=== PATIENT | female | born 1970 | race Caucasian/White ===

== ENCOUNTER → 2017-06-28 | Outpatient (CLI) | payer BC ==
[~2017-06-28] MED LIST: KRIL1000 PO; MAGNESIUM PO; MULT-704 PO; TRACE MINERALS PO; TURM1CAP PO
== END | disposition home or self-care (01) ==
LOC: C.PATHSPEC 15:18 → C.PAPS 16:53
PROVIDERS: ATTEND Obstetrics & Gynecology
DX: Z01.419 Encounter for gynecological examination (general) (routine) without abnormal findings (principal)

== ENCOUNTER → 2017-07-12 | Outpatient (CLI) | payer BC ==
[2017-07-12 17:43] LABS: BASO % 0.3 %; BASO ABS # 0.02 K/uL (0-0.2); COMPLETE YES; EOS % 0.6 %; HEMATOCRIT 35.1 % (37-47); IG% 0.2 %; LYMPH % 43.4 %; LYMPH ABS # 2.77 K/uL (1.2-3.4); MEAN CELL VOLUME 88.9 fL (80-100); MEAN CORPUSCULAR HEMOGLOBIN 29.4 pg (25-34); MEAN PLATELET VOLUME 10.3 fL (7.4-10.4); MONO % 5.6 %; NEUT % 49.9 %; PLATELET COUNT 293 K/uL (130-400); RED BLOOD COUNT 3.95 M/uL (4.2-5.4); WHITE BLOOD COUNT 6.38 K/uL (4.8-10.8)
[2017-07-12 18:09] LABS: PREG INTERNAL NEGATIVE QC NEG CLEAR BACKGROUND; PREG INTERNAL POSITIVE QC POS CONTROL LINE
== END | disposition home or self-care (01) ==
LOC: C.LAB 16:41
PROVIDERS: ATTEND Obstetrics & Gynecology
DX: Z01.812 Encounter for preprocedural laboratory examination (principal); N92.0 Excessive and frequent menstruation with regular cycle; N92.5 Other specified irregular menstruation

== ENCOUNTER → 2017-07-15 | Day surgery (SDC) | payer BC ==
--- NOTE | 2017-07-06 10:31 | HISTORY & PHYSICAL EXAMINATION ---
DATE OF ADMISSION: 07/15/2017 CHIEF COMPLAINT: Heavy vaginal bleeding with clotting. HISTORY OF PRESENT ILLNESS: The patient is a 46-year-old 4, para 3, had 1 spontaneous AB. Her general health is good. Her had a vasectomy for control. 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 She describes her periods as every 28-30 days, they start and stop, they last for over 6 days. 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 She had a transvaginal ultrasound on 06/29/2017 which showed a thickened endometrium at 1 cm. She is presently being scheduled for an outpatient D&C hysteroscopy. PAST MEDICAL HISTORY: She has 2 girls and 1 boy. No history of rheumatic fever, heart disease, heart murmur, diabetes, tuberculosis. ALLERGIES: She has no drug allergies. PAST SURGICAL HISTORY: She had a D&C in 1998 for a molar . SOCIAL HISTORY: No smoking. No excessive alcohol intake. 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 FAMILY HISTORY: There is some family history of congenital heart disease. Mom is 67, in good health. Father at age 72, a year after an artificial valve for staphylococcal infection of the valve. She has 1 sister in good health. REVIEW OF SYSTEMS: HEAD: No symptoms of frequent or severe headaches. EYES: No symptoms of blurred vision, double vision. EARS: No symptoms of frequent ear infections, difficulty hearing. NOSE: No symptoms of frequent nosebleeds. PHYSICAL EXAMINATION: GENERAL: Well-developed, well-nourished 46-year-old white female, alert, oriented x3 and cooperative, in no acute distress, appears her stated age. EYES: Conjunctivae are pink. Sclerae white. No evidence of jaundice. EARS: Normal light reflex bilaterally. NOSE: Normal mucosa. Septum is midline. There are no polyps. THROAT: No erythema or evidence of infection. Teeth are in good state of repair. HEAD: Normocephalic, normal distribution of hair. NECK: Supple. Trachea midline. Thyroid is not enlarged. There is no adenopathy appreciated. Both carotids are of good intensity. CHEST: Clear to auscultation and percussion. No wheezes, rales or rhonchi appreciated. HEART: Regular rhythm. S1 and S2 are normal. BREASTS: Normal. ABDOMEN: Soft and nontender. PELVIC: Normal-appearing cervix. Uterus is top normal size. There are no adnexal masses appreciated. MUSCULOSKELETAL: No calf tenderness. IMPRESSIONS OF THIS CASE: Hypermenorrhea, suspected adenomyosis, history of molar .
[2017-07-07 08:07] VITALS: Ht 168.9 cm; Wt 67.3 kg
[~2017-07-15] VITALS: Ht 168.9 cm; Wt 67.3 kg
[~2017-07-15] MED LIST changes: +ATROPINE SULFATE 0.1 MG/ML 5ML SYR IV PRN; +DEXAMETHASONE SOD INJ 4 MG/ML VIAL ONE; +FENTANYL CITRATE INJ 50 MCG/1 ML 2 ML VIAL IV PRN; +FENTANYL CITRATE INJ 50 MCG/1 ML 2 ML VIAL ONE; +HYDROCODONE/ACETAMOPHEN 5/325MG TAB PO PRN; +IBUPROFEN 600 MG TAB PO PRN; +KETOROLAC TROMETHAMINE 30 MG/ML VIAL IV. PRN; +KETOROLAC TROMETHAMINE 30 MG/ML VIAL ONE; +LIDOCAINE HCL 2% 2 ML VIAL (20MG/ML) ONE; +MIDAZOLAM HCL 1 MG/ML 2ML VIAL ONE; +ONDANSETRON INJ 2 MG/ML 2 ML VIAL IV PRN; +ONDANSETRON INJ 2 MG/ML 2 ML VIAL ONE; +OXYCODONE/ACETAMINOPHEN 5-325 TAB PO PRN; +PROPOFOL IV EMULSION 10 MG/ML 20 ML VIAL IV ONE; +SODIUM CHLORIDE 0.9% 1000ML 1,000 ML IV SCH
--- NOTE | 2017-07-15 06:41 | History & Physical Bridge Note ---
H&P Re-Evaluation Bridge Note: I have examined the patient, reviewed the History & Physical and in the interval since the performance of the History & Physical I have noted the following changes of clinical significance: No changes noted
[2017-07-15] MEDS: LACTATED RINGER'S 1000ML 1,000 ML IV SCH ×2 (06:56→07:47)
--- NOTE | 2017-07-15 07:28 | [facility] Post Operative Brief Note ---
Immediate Operative Summary Operative Date Jul 15, 2017. Pre-Operative Diagnosis Heavy vaginal bleeding, hypermenorrhea Post-Operative Diagnosis same as preop Procedure(s) Performed Dilatation And Curettage, Hysteroscopy Surgeon Dr. Garcia Gis Engineer Surgeon(s) none Estimated Blood Loss 10ml Findings UTERUS SOUNDED TO 8 CM Specimens A: Endometrial Currettings Complication(s) None Disposition Recovery Room / PACU
--- NOTE | 2017-07-15 07:31 | Discharge Instructions-SurgCtr ---
Discharge Instructions Date of Service Jul 15, 2017. Visit Reason for Visit: Heavy Vaginal Bleeding, Dub Discharge Discharge Diagnosis / Problem: HYPERMENORRHEA Discharge Goals Goal(s): Improve function, Learn about illness Activity Recommendations Activity Limitations: as noted below ACTIVITY RECOMMENDATIONS: * Avoid tampons, douching, hot tubs, pools, and intercourse until bleeding has stopped. * May shower as usual. * No strenuous activity for 24-48 hours. After 24-48 hours, you may do anything you feel like doing (driving and sports are okay). SPECIAL CARE INSTRUCTIONS: Special Diet: * Mild nausea may occur in the immediate post-operative period. * Take clear liquids such as tea, cola or bouillon until all nausea has subsided; you may then resume your normal diet. Special Care: * Light bleeding and vaginal spotting can last from a few days to 3-4 weeks. Call your doctor if bleeding becomes heavier than the heaviest part of your period. * Check your temperature twice a day for one week. If it goes above 100.4 degrees Fahrenheit (38.0 Celsius), notify your doctor. * Call your doctor's office for an appointment for 6 weeks after your surgery. FOLLOW-UP VISIT: Call your doctor's office for an appointment for 6 weeks after your surgery. Anesthesia . Post Anesthesia Instructions: If you have had General Anesthesia or IV Sedation: * Do not drive today. * Resume driving when surgeon permits. * Do not make important decisions or sign legal documents today. * Call surgeon for: 1. Temperature elevations greater than 101 degrees F. 2. Uncontrollable pain. 3. Excessive bleeding. 4. Persistent nausea and vomiting. 5. Medication intolerance (nausea, vomiting or rash). * For nausea and vomiting use only clear liquids such as: tea, soda, bouillon until nausea subsides, then gradually increase diet as tolerated. * If you have any concerns or questions, call your surgeon's office. If physician is unavailable and it is an emergency, call 911 or go to the nearest emergency room. . Instructions / Follow-Up Instructions / Follow-Up ACTIVITY RECOMMENDATIONS: * Avoid tampons, douching, hot tubs, pools, and intercourse until bleeding has stopped. * May shower as usual. * No strenuous activity for 24-48 hours. After 24-48 hours, you may do anything you feel like doing (driving and sports are okay). SPECIAL CARE INSTRUCTIONS: Special Diet: * Mild nausea may occur in the immediate post-operative period. * Take clear liquids such as tea, cola or bouillon until all nausea has subsided; you may then resume your normal diet. Special Care: * Light bleeding and vaginal spotting can last from a few days to 3-4 weeks. Call your doctor if bleeding becomes heavier than the heaviest part of your period. * Check your temperature twice a day for one week. If it goes above 100.4 degrees Fahrenheit (38.0 Celsius), notify your doctor. * Call your doctor's office for an appointment for 6 weeks after your surgery. FOLLOW-UP VISIT: Call your doctor's office for an appointment for 6 weeks after your surgery. Diet Recommendations Home Diet: resume previous diet Procedures Procedures Performed: Dilatation And Curettage, Hysteroscopy Pending Studies Studies pending at discharge: no Medical Emergencies . Who to Call and When: Medical Emergencies: If at any time you feel your situation is an emergency, please call 911 immediately. . Non-Emergent Contact Non-Emergency issues call your: Master Control Supervisor Call Non-Emergent contact if: temperature is above 100.5 . . "Provider Documentation" section prepared by Jaxson Garcia. .
--- NOTE | 2017-07-15 07:49 | OPERATIVE REPORT ---
DATE OF OPERATION: 07/15/2017 INDICATIONS FOR SURGERY: Heavy prolonged vaginal bleeding with clotting. PREOPERATIVE DIAGNOSIS: Hypermenorrhea. POSTOPERATIVE DIAGNOSIS: Same. Uterus sounded to 8 cm. PROCEDURE: D&C, hysteroscopy. SURGEON: Dr. Garcia. ESTIMATED BLOOD LOSS: 10 mL. ANESTHESIA: General. OPERATIVE FINDINGS AND PROCEDURE: The patient was brought to the OR table, correctly identified by armband and conversation. General anesthesia was administered. Perineum and vagina were painted with Betadine paint, draped in usual sterile fashion. Catheter was used to empty the bladder. Careful pelvic exam under anesthesia revealed a mid positional size uterus. There were no adnexal masses appreciated. Weighted speculum was placed in the posterior vagina. Anterior lip of the cervix grasped with single tooth tenaculum. Uterus was sounded to 8 cm. Cervix was dilated with graduated dilators. Hysteroscope with normal saline distention medium was inserted into the uterine cavity. Photographs were taken from the cervix to the fundus of the uterus and photographs were taken of both tubal ostia, there were no polyps. Following this, a thorough and extensive curettage of the endometrial cavity was performed. All 4 quadrants of the uterus were thoroughly and systematically cureted. This was productive of a moderate amount of grossly normal tissue. After thorough curettage of the entire endometrial cavity instruments were removed. The patient tolerated the procedure well and left the OR in good condition. I attest to the content of the Intraoperative Record and any orders documented therein. Any exception s are noted below.
[2017-07-15 08:22] VITALS: TEMP 36.8
[2017-07-15 08:33] VITALS: BP 99/60; PULSE 59; O2SAT 100
--- NOTE | 2017-07-15 08:37 | Anesthesia Progress Nt - [facility] ---
Anesthesia Post Op Note Date & Time Jul 15, 2017 at 08:37 Vital Signs Pain Intensity: 0 Vital Signs Past 12 Hours Date Time Temp Pulse Resp B/P (MAP) Pulse Ox O2 Delivery O2 Flow Rate FiO2 07/15/17 08:33 59 14 99/60 (73) 100 Room Air 07/15/17 08:22 36.8 67 16 103/69 (80) 100 Room Air 07/15/17 08:06 107/65 07/15/17 08:03 36.7 67 16 95/58 99 Room Air 07/15/17 08:02 65 12 98 07/15/17 08:02 64 12 07/15/17 08:01 95/58 07/15/17 07:58 61 14 07/15/17 07:58 60 14 98 07/15/17 07:56 99/62 07/15/17 07:53 67 16 97 07/15/17 07:53 67 16 07/15/17 07:52 66 12 98 07/15/17 07:52 65 12 07/15/17 07:51 103/59 07/15/17 07:47 63 15 07/15/17 07:47 63 15 99 07/15/17 07:46 98/53 07/15/17 07:42 75 17 98 07/15/17 07:42 75 17 07/15/17 07:41 100/54 07/15/17 07:39 67 15 07/15/17 07:39 67 15 98 07/15/17 07:36 93/53 07/15/17 07:34 68 14 07/15/17 07:34 68 14 98 07/15/17 07:31 92/54 07/15/17 07:30 89/63 07/15/17 07:29 36.7 66 12 89/63 97 Diffusion Mask 6 07/15/17 06:32 36.6 69 16 109/70 (83) 100 Room Air Notes Mental Status: alert / awake / arousable, participated in evaluation Pt Amnestic to Procedure: Yes Nausea / Vomiting: adequately controlled Pain: adequately controlled Airway Patency, RR, SpO2: stable & adequate BP & HR: stable & adequate Hydration State: stable & adequate Anesthetic Complications: no major complications apparent
== END | disposition home or self-care (01) ==
LOC: X.SURG 06:09
PROVIDERS: ATTEND Obstetrics & Gynecology
DX: N92.0 Excessive and frequent menstruation with regular cycle (principal); Z82.49 Family history of ischemic heart disease and other diseases of the circulatory system

== ENCOUNTER → 2017-12-13 | Outpatient (CLI) | payer BC ==
[~2017-12-13] MED LIST changes: -ATROPINE SULFATE 0.1 MG/ML 5ML SYR IV PRN; -DEXAMETHASONE SOD INJ 4 MG/ML VIAL ONE; -FENTANYL CITRATE INJ 50 MCG/1 ML 2 ML VIAL IV PRN; -FENTANYL CITRATE INJ 50 MCG/1 ML 2 ML VIAL ONE; -HYDROCODONE/ACETAMOPHEN 5/325MG TAB PO PRN; -IBUPROFEN 600 MG TAB PO PRN; -KETOROLAC TROMETHAMINE 30 MG/ML VIAL IV. PRN; -KETOROLAC TROMETHAMINE 30 MG/ML VIAL ONE; -LIDOCAINE HCL 2% 2 ML VIAL (20MG/ML) ONE; -MIDAZOLAM HCL 1 MG/ML 2ML VIAL ONE; -MULT-704 PO; +MULTTAB58 PO; -ONDANSETRON INJ 2 MG/ML 2 ML VIAL IV PRN; -ONDANSETRON INJ 2 MG/ML 2 ML VIAL ONE; -OXYCODONE/ACETAMINOPHEN 5-325 TAB PO PRN; -PROPOFOL IV EMULSION 10 MG/ML 20 ML VIAL IV ONE; -SODIUM CHLORIDE 0.9% 1000ML 1,000 ML IV SCH; -TRACE MINERALS PO
[2017-12-13 15:38] LABS: BASO % 0.3 %; BASO ABS # 0.02 K/uL (0-0.2); EOS % 0.5 %; EOS ABS # 0.04 K/uL (0-0.5); HEMOGLOBIN 11.4 g/dL (12.0-16.0); IG# 0.02 K/uL (0.00-0.02); LYMPH % 36.6 %; LYMPH ABS # 2.79 K/uL (1.2-3.4); MEAN CELL VOLUME 88.1 fL (80-100); MEAN CORPUSCULAR HEMOGLOBIN 29.5 pg (25-34); MEAN CORPUSCULAR HGB CONC 33.5 g/dl (32-36); MEAN PLATELET VOLUME 9.7 fL (7.4-10.4); MONO ABS # 0.53 K/uL (0.11-0.59); NEUT % 55.3 %; NEUT ABS # 4.22 K/uL (1.4-6.5); PLATELET COUNT 267 K/uL (130-400); RED CELL DISTRIBUTION WIDTH CV 12.8 % (11.5-14.5); RED CELL DISTRIBUTION WIDTH SD 41.1 fL (36.4-46.3); WHITE BLOOD COUNT 7.62 K/uL (4.8-10.8)
== END | disposition home or self-care (01) ==
LOC: C.LAB 15:00
PROVIDERS: ATTEND Obstetrics & Gynecology
DX: Z01.812 Encounter for preprocedural laboratory examination (principal); N92.0 Excessive and frequent menstruation with regular cycle

== ENCOUNTER → 2017-12-16 | Day surgery (SDC) | payer BC ==
[2017-12-01 10:11] VITALS: Ht 168.9 cm; Wt 67.3 kg
--- NOTE | 2017-12-13 14:36 | HISTORY & PHYSICAL EXAMINATION ---
DATE OF ADMISSION: 12/16/2017 CHIEF COMPLAINT: Heavy vaginal bleeding with clotting, failed D&C, failed medical therapy. HISTORY OF PRESENT ILLNESS: The patient is a 47-year-old 4, para 3, has had one spontaneous AB. General health is good. had a vasectomy for control. She has been experiencing episodes of heavy vaginal bleeding and clotting, soaking through a pad and a tampon in under an hour. 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 It has also been getting progressively worse. She describes her periods as every 28-30 days that last for over 6 days, 2 extremely heavy days of bleeding where she will soak through a pad and a tampon, both in under an hour. 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 She had a transvaginal ultrasound on 06/29/2017, which showed a thickened endometrium. She then had a D&C hysteroscopy on 07/06/2017. Following this procedure, her symptoms recurred. We tried treating her with medical therapy; however, she was unable to tolerate hormonal therapy. She is presently being scheduled for an outpatient D&C, hysteroscopy, and endometrial ablation. PAST MEDICAL HISTORY: She has 2 girls and 1 boy. No history of rheumatic fever, heart disease, heart murmur, diabetes, or tuberculosis. ALLERGIES: She has no known drug allergies. PAST SURGICAL HISTORY: She has had a D&C in 1998 for a molar and she had a D&C hysteroscopy on 07/06/2017. SOCIAL HISTORY: No smoking. No excessive alcohol. 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 FAMILY HISTORY: Family history of congenital heart disease. Mom is 67 in good health. Father at age 72, a year after an artificial valve got infected with staph. She has 1 sister in good health. REVIEW OF SYSTEMS: No symptoms of frequent or severe headaches. No symptoms of blurred vision, double vision. No symptoms of ear infections or difficulty hearing. No symptoms of frequent nosebleeds. PHYSICAL EXAMINATION: GENERAL: A well-developed, well-nourished 46-year-old white female, alert, oriented x3 and cooperative in no acute distress, appears her stated age. EYES: Conjunctivae are pink. Sclerae are white. No evidence of jaundice. EARS: Had normal light reflex bilaterally. NOSE: Had normal mucosa. Septum is midline. There were no polyps. THROAT: No erythema or evidence of infection. Teeth are in good state of repair. HEAD: Normocephalic, normal distribution of hair. NECK: Supple. Trachea is midline. Thyroid is not enlarged. There is no adenopathy appreciated. Both carotids are of good intensity. CHEST: Clear to auscultation and percussion. No wheezes, rales or rhonchi appreciated. HEART: Had regular rhythm. S1 and S2 are normal. BREASTS: Normal. ABDOMEN: Soft and nontender. PELVIC: Revealed normal-appearing cervix. Uterus top normal size. There are no adnexal masses appreciated. MUSCULOSKELETAL: Revealed no calf tenderness. IMPRESSIONS OF THIS CASE: History of molar , hypermenorrhea, suspected adenomyosis, failed medical therapy, failed outpatient D&C therapy.
[~2017-12-16] VITALS: Ht 168.9 cm; Wt 67.3 kg
[~2017-12-16] MED LIST changes: +ATROPINE SULFATE 0.1 MG/ML 5ML SYR IV PRN; +DEXAMETHASONE SOD INJ 4 MG/ML VIAL ONE; +FENTANYL CITRATE INJ 50 MCG/1 ML 2 ML VIAL IV PRN; +FENTANYL CITRATE INJ 50 MCG/1 ML 2 ML VIAL ONE; +HYDROCODONE/ACETAMIN 5/325MG TAB ONE; +HYDROCODONE/ACETAMIN 5/325MG TAB PO PRN; +IBUPROFEN 600 MG TAB PO PRN; +KETOROLAC TROMETHAMINE 30 MG/ML VIAL IV. PRN; +KETOROLAC TROMETHAMINE 30 MG/ML VIAL ONE; +LACTATED RINGER'S 1000ML 1,000 ML IV SCH; +LIDOCAINE HCL 2% 2 ML VIAL (20MG/ML) ONE; +MIDAZOLAM HCL 1 MG/ML 2ML VIAL ONE; +ONDANSETRON INJ 2 MG/ML 2 ML VIAL IV PRN; +ONDANSETRON INJ 2 MG/ML 2 ML VIAL ONE; +OXYCODONE/ACETAMINOPHEN 5-325 TAB PO PRN; +PROPOFOL IV EMULSION 10 MG/ML 20 ML VIAL IV ONE; +SODIUM CHLORIDE 0.9% 1000ML 1,000 ML IV SCH
--- NOTE | 2017-12-16 09:00 | [facility] Post Operative Brief Note ---
Immediate Operative Summary Operative Date Dec 16, 2017. Pre-Operative Diagnosis Heavy Vaginal Bleeding Post-Operative Diagnosis same Procedure(s) Performed Dilatation And Curettage, Hysteroscopy With Endometrial Ablation with Novasure Surgeon Dr. Felipe Garcia Performance Improvement Specialist Surgeon(s) 0 Estimated Blood Loss 10ml Findings Consistent with Post-Op Diagnosis Specimens A. Endometrial Curettings Drains None Anesthesia Type General Complication(s) none Disposition Disposition: Recovery Room / PACU
--- NOTE | 2017-12-16 09:10 | Discharge Instructions-SurgCtr ---
Discharge Instructions Date of Service Dec 16, 2017. Visit Reason for Visit: Heavy Vaginal Bleeding Discharge Discharge Diagnosis / Problem: HEAVY VAGINAL BLEEDING Discharge Goals Goal(s): Improve function, Therapeutic intervention Activity Recommendations Activity Limitations: as noted below ACTIVITY RECOMMENDATIONS: * Avoid tampons, douching, hot tubs, pools, and intercourse until bleeding has stopped. * May shower as usual. * No strenuous activity for 24-48 hours. After 24-48 hours, you may do anything you feel like doing (driving and sports are okay). SPECIAL CARE INSTRUCTIONS: Special Diet: * Mild nausea may occur in the immediate post-operative period. * Take clear liquids such as tea, cola or bouillon until all nausea has subsided; you may then resume your normal diet. Special Care: * Light bleeding and vaginal spotting can last from a few days to 3-4 weeks. Call your doctor if bleeding becomes heavier than the heaviest part of your period. * Check your temperature twice a day for one week. If it goes above 100.4 degrees Fahrenheit (38.0 Celsius), notify your doctor. * Call your doctor's office for an appointment for 6 weeks after your surgery. FOLLOW-UP VISIT: Call your doctor's office for an appointment for 6 weeks after your surgery. Anesthesia . Post Anesthesia Instructions: If you have had General Anesthesia or IV Sedation: * Do not drive today. * Resume driving when surgeon permits. * Do not make important decisions or sign legal documents today. * Call surgeon for: 1. Temperature elevations greater than 101 degrees F. 2. Uncontrollable pain. 3. Excessive bleeding. 4. Persistent nausea and vomiting. 5. Medication intolerance (nausea, vomiting or rash). * For nausea and vomiting use only clear liquids such as: tea, soda, bouillon until nausea subsides, then gradually increase diet as tolerated. * If you have any concerns or questions, call your surgeon's office. If physician is unavailable and it is an emergency, call 911 or go to the nearest emergency room. . Instructions / Follow-Up Instructions / Follow-Up ACTIVITY RECOMMENDATIONS: * Avoid tampons, douching, hot tubs, pools, and intercourse until bleeding has stopped. * May shower as usual. * No strenuous activity for 24-48 hours. After 24-48 hours, you may do anything you feel like doing (driving and sports are okay). SPECIAL CARE INSTRUCTIONS: Special Diet: * Mild nausea may occur in the immediate post-operative period. * Take clear liquids such as tea, cola or bouillon until all nausea has subsided; you may then resume your normal diet. Special Care: * Light bleeding and vaginal spotting can last from a few days to 3-4 weeks. Call your doctor if bleeding becomes heavier than the heaviest part of your period. * Check your temperature twice a day for one week. If it goes above 100.4 degrees Fahrenheit (38.0 Celsius), notify your doctor. * Call your doctor's office for an appointment for 6 weeks after your surgery. FOLLOW-UP VISIT: Call your doctor's office for an appointment for 6 weeks after your surgery. Diet Recommendations Home Diet: resume previous diet Procedures Procedures Performed: Dilatation And Curettage, Hysteroscopy With Endometrial Ablation with Novasure Pending Studies Studies pending at discharge: no Medical Emergencies . Who to Call and When: Medical Emergencies: If at any time you feel your situation is an emergency, please call 911 immediately. . Non-Emergent Contact Non-Emergency issues call your: Mechanical Maintenance Technician Call Non-Emergent contact if: temperature is above 100.5 . . "Provider Documentation" section prepared by Jaxson Garcia. .
--- NOTE | 2017-12-16 09:21 | OPERATIVE REPORT ---
DATE OF OPERATION: 12/16/2017 PROCEDURE: D&C, hysteroscopy, endometrial ablation. INDICATIONS FOR SURGERY: Prior failed D&C, heavy vaginal bleeding with flooding. PREOPERATIVE DIAGNOSIS: Hypermenorrhea. POSTOPERATIVE DIAGNOSIS: Same. Pathology pending. SURGEON: Dr. Garcia. ESTIMATED BLOOD LOSS: 10 mL ANESTHESIA: General. OPERATIVE FINDINGS AND PROCEDURE: The patient was brought to the OR table, correctly identified by armband and conversation. Perineum and vagina were painted with Betadine paint, draped in usual sterile fashion. Careful pelvic exam under anesthesia revealed a normal size anteverted uterus. There were no adnexal masses appreciated. Catheter was used to empty the bladder. A weighted speculum was placed in the posterior vagina. Anterior lip was grasped with single tooth tenaculum. The uterus was sounded to 8.5 cm. Cervix was then dilated with graduated dilators. A hysteroscope was placed in the uterine cavity. The entire cavity was visualized including both tubal ostia. Photographs were taken of the ostia and the cavity. There were no polyps. After this, the hysteroscope was removed. A small sharp serrated curet was placed in the uterine cavity. All 4 quadrants were thoroughly and systematically cureted. This was productive of moderate amount of grossly normal-appearing tissue. Following this, a NovaSure endometrial ablation device was placed in the uterine cavity. The cervix was measured at 4.5 cm. The device was opened to a width of 4.6. We did an integrity test, the first time the test failed due to leaking of gas around the cervix, and so we used some Vaseline-soaked gauze, impacted around the cervix and the NovaSure device, then repeated the test, this time the integrity test passed and the machine turned on. We eventually used 101 knox for 2 minutes. Following this, machine turned off. We waited for the device to cool down, then removed the device from the uterine cavity, reinserted the hysteroscope and were able to demonstrate good parisa of the entire endometrial cavity. Instruments were removed. The patient tolerated the procedure well and left the OR in good condition. I attest to the content of the Intraoperative Record and any orders documented therein. Any exception s are noted below.
--- NOTE | 2017-12-16 10:10 | Anesthesia Progress Nt - [facility] ---
Anesthesia Post Op Note Date & Time Dec 16, 2017 at 10:10 Vital Signs Pain Intensity: 4.0 Vital Signs Past 12 Hours Date Time Temp Pulse Resp B/P (MAP) Pulse Ox O2 Delivery O2 Flow Rate FiO2 12/16/17 09:38 36.7 66 16 108/73 (85) 100 Room Air 12/16/17 09:29 36.3 68 16 109/69 100 Room Air 12/16/17 09:26 66 17 12/16/17 09:26 67 17 100 12/16/17 09:25 109/69 12/16/17 09:21 73 20 117/70 100 12/16/17 09:21 71 20 12/16/17 09:16 64 15 12/16/17 09:16 64 15 100 12/16/17 09:15 114/71 12/16/17 09:11 69 15 12/16/17 09:11 69 15 100 12/16/17 09:10 67 13 113/69 100 12/16/17 09:10 67 13 12/16/17 09:08 111/65 12/16/17 09:05 36.1 65 12 111/65 100 Mask 6 12/16/17 07:38 36.5 78 16 112/74 (87) 98 Room Air Notes Mental Status: alert / awake / arousable, participated in evaluation Pt Amnestic to Procedure: Yes Nausea / Vomiting: adequately controlled Pain: adequately controlled Airway Patency, RR, SpO2: stable & adequate BP & HR: stable & adequate Hydration State: stable & adequate Anesthetic Complications: no major complications apparent
[2017-12-16 10:17] VITALS: BP 108/70; PULSE 60; TEMP 36.7; O2SAT 100
== END | disposition home or self-care (01) ==
LOC: X.SURG 07:21
PROVIDERS: ATTEND Obstetrics & Gynecology
DX: N92.0 Excessive and frequent menstruation with regular cycle (principal); Z82.49 Family history of ischemic heart disease and other diseases of the circulatory system